=== PATIENT | female | born 1970 | race Caucasian/White ===

== ENCOUNTER 2018-10-23 11:10 | Emergency (ER) | payer MEDICARE, OTHER ==
[~2018-10-23] VITALS: Ht 172.7 cm; Wt 117.0 kg
[2018-10-23] MEDS ORDERED: BLOO1EAC87 MC (11:22)
[2018-10-23] MEDS ORDERED: BLOO-367 MC (11:22)
[2018-10-23] MEDS ORDERED: CEPH-507 PO (11:22)
--- OUTSIDE RECORDS SUMMARY | 2018-10-23 11:22 | XMS REPORT ---
Author Karson Randall [facility] eClinicalWorks Address Unknown Phone Unavailable Care Team Providers Care Cloud Architect Name Role Phone Karson Samuels CP Unavailable Allergies No Known Allergies Problems Problem Type Condition ICD-9 Code Onset Dates Condition Status Problem Diabetes mellitus without mention of complication, type II or unspecified type, not stated as uncontrolled 250.00 Active Medications Medication Code System Code Instructions Start Date End Date Status Dosage Omeprazole [facility] [id number] 40 Orally Once a day 1 capsule Results No Known Results Summary Purpose eClinicalWorks Submission
--- OUTSIDE RECORDS SUMMARY | 2018-10-23 11:22 | XMS REPORT ---
Author Robina Oliveira [facility] eClinicalWorks Address Unknown Phone Unavailable Care Team Providers Care Retail Business Manager Name Role Phone Robina Fernandez CP Unavailable Allergies, Adverse Reactions, Alerts Substance Reaction Event Type N.K.D.A. 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 Active Assessment Hypertension 401.9 Active Problem Hypertension 401.9 Active Problem Hyperlipidemia 272.4 Active Problem Anxiety 300.00 Active Problem Diabetes mellitus without mention of complication, type II or unspecified type, not stated as uncontrolled 250.00 Active Assessment Diabetes mellitus without mention of complication, type II or unspecified type, not stated as uncontrolled 250.00 Active Problem 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 Active Problem GERD (gastroesophageal reflux disease) 530.81 Active Medications Medication Code System Code Instructions Start Date End Date Status Dosage Simvastatin [facility] [address]-98 20 MG Orally Once a day 1 tablet in the evening Clonazepam [facility] [address]-04 0.5 MG Orally Twice a day Nov 30, 2014 1 tablet Metformin HCl [facility] [address]-76 1000 MG Orally Twice a day Nov 21, 2014 1 tablet with meals Citalopram Hydrobromide [facility] [address]-40 20 MG Orally Once a day Nov 30, 2014 1 tablet Lisinopril [facility] [address]-62 10 MG Orally Once a day May 31, 2013 1 tablet BD Insulin Syringe [facility] 8290-649236 U-100 1 ML sq bid Nov 21, 2014 as directed NovoLog Flexpen [facility] [address]-42 100 UNIT/ML Subcutaneous before meals 5u and increase by 2u per wk Acyclovir [facility] [address]-56 400mg Orally Twice a day 1 tablet Cephalexin [facility] [address]-24 500 MG Orally Four times a day 1 tablet NovoLog Mix 70/30 [facility] [address]-96 (70-30) 100 UNIT/ML Subcutaneous bid Nov 21, 2014 90u in am and 45u in pm Omeprazole [facility] 68791393388 40MG Orally Once a day 1 capsule Procedures Procedure Coding System Code Date Office Visit Est Pt Level 4 CPT-4 93959 Nov 30, 2014 Vital Signs Date/Time: Nov 30, 2014 Blood Pressure Systolic 148 mm Hg Cardiac Monitoring Heart Rate 114 /min Temperature 98.7 F BMI 32.38 Index Weight 213 lbs Height 68 in Blood Pressure Diastolic 94 mm Hg Respiratory Rate 16 /min Results No Known Results Summary Purpose eClinicalWorks Submission
--- OUTSIDE RECORDS SUMMARY | 2018-10-23 11:22 | XMS REPORT ---
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
--- OUTSIDE RECORDS SUMMARY | 2018-10-23 11:22 | XMS REPORT ---
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
--- OUTSIDE RECORDS SUMMARY | 2018-10-23 11:22 | XMS REPORT ---
Author Robina Oliveira [facility] eClinicalWorks Address Unknown Phone Unavailable Care Team Providers Care Associate Oracle Retail Name Role Phone Robina Fernandez CP Unavailable Allergies, Adverse Reactions, Alerts Substance Reaction Event Type N.K.D.A. 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 8290-785890 U-100 1 ML sq bid Nov 21, 2014 as directed Metformin HCl [facility] [address]-14 1000 MG Orally Twice a day Nov 21, 2014 1 tablet with meals Metformin HCl [facility] [address]-46 500 MG Orally Twice a day 1 tablet with meals Omeprazole [facility] 35001822361 40MG Orally Once a day 1 capsule Lisinopril [facility] [address]-18 5 MG Orally Once a day May 31, 2013 1 tablet NovoLog Mix 70/[address] [facility] [address]-76 (70-30) 100 UNIT/ML Subcutaneous bid Nov 21, 2014 90u in am and 45u in pm Simvastatin [facility] [address]-71 20 MG Orally Once a day 1 tablet in the evening Acyclovir [facility] [address]-10 400mg Orally Twice a day 1 tablet Procedures Procedure Coding System Code Date Office Visit Est Pt Level 4 CPT-4 25285 Nov 21, 2014 LIPID PANEL CPT-4 96200 Nov 21, 2014 Vital Signs Date/Time: Nov 21, 2014 Blood Pressure Systolic 114 mm Hg Cardiac Monitoring Heart Rate 90 /min Temperature 98.5 F BMI 32.54 Index Weight 214 lbs Height 68 in Blood Pressure Diastolic 80 mm Hg Respiratory Rate 16 /min Results No Known Results Summary Purpose eClinicalWorks Submission
--- OUTSIDE RECORDS SUMMARY | 2018-10-23 11:22 | XMS REPORT ---
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
--- OUTSIDE RECORDS SUMMARY | 2018-10-23 11:22 | XMS REPORT ---
Author Robina Oliveira [facility] eClinicalWorks Address Unknown Phone Unavailable Care Team Providers Care Paper Baler Name Role Phone Robina Fernandez CP Unavailable [...]
--- OUTSIDE RECORDS SUMMARY | 2018-10-23 11:22 | XMS REPORT ---
Author Karson Randall [facility] eClinicalWorks Address Unknown Phone Unavailable Care Team Providers Care Bar Hostess Name Role Phone Karson Samuels CP Unavailable Allergies No Known Allergies Problems Problem Type Condition ICD-9 Code Onset Dates Condition Status Problem Diabetes mellitus without mention of complication, type II or unspecified type, not stated as uncontrolled 250.00 Active Medications No Known Medications Results No Known Results Summary Purpose eClinicalWorks Submission
--- OUTSIDE RECORDS SUMMARY | 2018-10-23 11:22 | XMS REPORT ---
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
--- OUTSIDE RECORDS SUMMARY | 2018-10-23 11:22 | XMS REPORT ---
Author Karson Randall [facility] eClinicalWorks Address Unknown Phone Unavailable Care Team Providers Care Glove Presser Name Role Phone Karson Samuels CP Unavailable Allergies, Adverse Reactions, Alerts Substance Reaction Event Type N.K.D.A. Info Not Available Non Drug Allergy Problems Problem Type Condition ICD-9 Code Onset Dates Condition Status Assessment Diabetes mellitus without mention of complication, type II or unspecified type, not stated as uncontrolled 250.00 Active Assessment Major Depressive Disorder, Recurrent, Severe Without Psychotic Features 296.33 Active Problem Diabetes mellitus without mention of complication, type II or unspecified type, not stated as uncontrolled 250.00 Active Assessment Hyperlipidemia 272.4 Active Assessment UTI 599.0 Active Medications Medication Code System Code Instructions Start Date End Date Status Dosage Aspirin [facility] [address]-64 81mg 1T Cipro [facility] [address]-10 500 MG Orally Twice a day September 12, 2014 1 tablet Levemir [facility] [address]-61 100 UNIT/ML Subcutaneous at bedtime September 12, 2014 60 units Insulin Syringe-Needle U-100 [facility] 0 28G X 1/2" 1 ML subq 5 times a day September 12, 2014 as directed Simvastatin [facility] [address]-44 20 MG Orally Once a day 1 tablet in the evening Lisinopril [facility] [address]-83 5 MG Orally Once a day May 31, 2013 1 tablet Omeprazole [facility] 62050931505 40 Orally Once a day 1 capsule Acyclovir [facility] [address]-27 400mg Orally Twice a day 1 tablet Levemir Flexpen [facility] 43704878412 100 Subcutaneous Daily inject 60 units sub-q every night at bedtime NovoLog [facility] [address]-96 100 UNIT/ML Subcutaneous Three times daily September 12, 2014 !5 units as directed Wellbutrin XL [facility] 43573306063 300 MG Orally Once a day 1 tablet in the morning NovoLog Flexpen [facility] 89968612877 100 Subcutaneous Three times a day units sub-q three times daily with meals Procedures Procedure Coding System Code Date URINALYSIS, AUTO, W/O SCOPE CPT-4 57639 September 12, 2014 Office Visit, Est Pt., Level 3 CPT-4 98719 September 12, 2014 URINE TEST CPT-4 47876 September 12, 2014 Vital Signs Date/Time: September 12, 2014 Blood Pressure Systolic 122 mm Hg Cardiac Monitoring Heart Rate 91 /min Temperature 98.9 F BMI 33.14 Index Weight 218 lbs Height 68 in Blood Pressure Diastolic 80 mm Hg Respiratory Rate 16 /min Results Name Result Date Reference Range Unit Abnormality Flag TEST - IH Summary Purpose eClinicalWorks Submission
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
--- OUTSIDE RECORDS SUMMARY | 2018-10-23 11:22 | XMS REPORT ---
Author Karson Randall [facility] eClinicalWorks Address Unknown Phone Unavailable Care Team Providers Care Commercial Drafter Name Role Phone Karson Samuels CP Unavailable Allergies, Adverse Reactions, Alerts Substance Reaction Event Type N.K.D.A. Info Not Available Non Drug Allergy Problems Problem Type Condition ICD-9 Code Onset Dates Condition Status Assessment Diarrhea 787.91 Active Assessment Abdominal pain, unspecified site 789.00 Active Problem Diabetes mellitus without mention of complication, type II or unspecified type, not stated as uncontrolled 250.00 Active Medications Medication Code System Code Instructions Start Date End Date Status Dosage Accu-Chek Liseth SmartView [facility] [address]-19 test cutaneus three times a day May 31, 2013 as directed NovoLog Flexpen [facility] [address]-25 5u around meals not defined Aspirin [facility] [address]-15 81mg 1T Bactrim DS [facility] [address]-33 800-160 MG Orally Twice a day August 07, 2013 1 tablet Omeprazole [facility] [address]-83 40 MG Orally Once a day May 31, 2013 1 capsule Promethazine HCl [facility] [address]-98 25 MG Orally Three times a day August 07, 2013 1 tablet Simvastatin [facility] [address]-58 20 MG Orally Once a day August 01, 2013 1 tablet in the evening Flagyl [facility] [address]-20 500 MG Orally Two times a day August 07, 2013 1 tablet Carafate [facility] [address]-24 1 GM Orally Twice a day August 14, 2013 1 tablet on an empty stomach Levemir Flexpen [facility] [address]-48 100 UNIT/ML Subcutaneous once a day at betime 46 units Acyclovir [facility] [address]-26 400mg Twice a day 1T Lisinopril [facility] [address]-96 5 MG Orally Once a day May 31, 2013 1 tablet Procedures Procedure Coding System Code Date URINALYSIS, AUTO, W/O SCOPE CPT-4 25079 August 14, 2013 Office Visit Est Pt Level 4 CPT-4 76104 August 14, 2013 GLUCOSE BLOOD TEST CPT-4 54213 August 14, 2013 Vital Signs Date/Time: August 14, 2013 Blood Pressure Systolic 126 mm Hg Cardiac Monitoring Heart Rate 84 /min Temperature 98.0 F BMI 35.12 Index Weight 231 lbs Height 68 in Blood Pressure Diastolic 80 mm Hg Respiratory Rate 14 /min Results No Known Results Summary Purpose eClinicalWorks Submission
--- OUTSIDE RECORDS SUMMARY | 2018-10-23 11:22 | XMS REPORT ---
Author Robina Oliveira [facility] eClinicalWorks Address Unknown Phone Unavailable Care Team Providers Care Butadiene Converter Helper Name Role Phone Robina Fernandez CP Unavailable [...] Start Date End Date Status Dosage Omeprazole [facility] 32542604696 40MG Orally Once a day 1 capsule Results No Known Results Summary Purpose eClinicalWorks Submission
--- NOTE | 2018-10-23 11:23 | ED Lower Extremity ---
General Stated Complaint: WOUND ON TOE Source: patient Exam Limitations: no limitations History of Present Illness Date Seen by Provider: Oct 23, 2018 Time Seen by Provider: 11:22 Initial Comments To ER with reports of foul-smelling urine. She also has a wound to the medial aspect of the tip of the left great toe. She just noticed it today, not sure how she got it, she is a diabetic. She's been taking her insulin as directed but she does not have a glucometer. [facility] She arrives by EMS for this reason. Onset: just prior to arrival Severity: moderate Pain/Injury Location: right 1st toe Method of Injury: fell Modifying Factors: Worse With Movement Allergies and Home Medications Allergies Coded Allergies: No Known Drug Allergies (Unverified , 10/23/18) Home Medications Cephalexin 500 Mg Capsule, 500 MG PO TID Prescribed by: EPIFANIO SEQUEIRA on 10/23/18 1122 Patient Home Medication List Home Medication List Reviewed: Yes Review of Systems Constitutional: see HPI EENTM: see HPI Respiratory: no symptoms reported Cardiovascular: no symptoms reported Genitourinary: no symptoms reported Musculoskeletal: see HPI Skin: no symptoms reported Psychiatric/Neurological: No Symptoms Reported Physical Exam Vital Signs Vital Signs - First Documented 10/23/18 11:18 Temp 98.5 Pulse 103 Resp 18 B/P (MAP) 163/86 (111) Pulse Ox 98 O2 Delivery Room Air Capillary Refill : Height, Weight, BMI Height: '" Weight: lbs. oz. kg; BMI Method: General Appearance: WD/WN, no apparent distress HEENT: PERRL/EOMI, normal ENT inspection Neck: non-tender, full range of motion Cardiovascular: tachycardia Respiratory: no respiratory distress, no accessory muscle use Hips: bilateral hip non-tender, bilateral hip normal inspection, bilateral hip normal range of motion Legs: bilateral leg non-tender, bilateral leg normal inspection, bilateral leg normal range of motion Knees: bilateral knee non-tender, bilateral knee normal inspection, bilateral knee normal range of motion Ankles: bilateral ankle non-tender, bilateral ankle normal inspection, bilateral ankle normal range of motion Feet: right foot other (to the medial aspect of the distal right foot, there is a 0.5 cm incision down to the subcutaneous tissue. This is not actively bleeding, there is no active infection or drainage. There is no surrounding erythema.) Neurologic/Psychiatric: alert, normal mood/affect Skin: normal color, warm/dry Progress/Results/Core Measures Results/Orders Lab Results Laboratory Tests Test 10/23/18 11:21 Range/Units Urine Color YELLOW Urine Clarity VERY CLOUDY H Urine pH 5 5-9 Urine Specific Cassandra 1.025 H 1.016-1.022 Urine Protein 4+ NEGATIVE Urine Glucose (UA) NEGATIVE NEGATIVE Urine Ketones 1+ H NEGATIVE Urine Nitrite POSITIVE H NEGATIVE Urine Bilirubin 1+ H NEGATIVE Urine Urobilinogen 1 NORMAL MG/DL Urine Leukocyte Esterase 2+ H NEGATIVE Urine RBC (Auto) 2+ H NEGATIVE Urine RBC 2-5 H /HPF Urine WBC 25-50 H /HPF Urine Squamous Epithelial Cells 5-10 /HPF Urine Crystals NONE /LPF Urine Bacteria LARGE H /HPF Urine Casts NONE /LPF Urine Mucus NEGATIVE /LPF Urine Culture Indicated YES Urine Test NEGATIVE NEGATIVE My Orders Orders - EPIFANIO SEQUEIRA APRN Ua Culture If Indicated (10/23/18 11:16) Hcg,Qualitative Urine (10/23/18 11:26) Urine Culture (10/23/18 11:21) Cefdinir Capsule (Omnicef Capsule) (10/23/18 11:45) Vital Signs/I&O 10/23/18 11:18 Temp 98.5 Pulse 103 Resp 18 B/P (MAP) 163/86 (111) Pulse Ox 98 O2 Delivery Room Air Departure Impression Primary Impression: Fissure in skin of foot Disposition: 01 HOME, SELF-CARE Condition: Stable Departure-Patient Inst. Decision time for Depature: 11:24 Referrals: NO,LOCAL PHYSICIAN (PCP/Family) Primary Care Physician Patient Instructions: Urinary Tract Infection, Adult (DC), Wound Care Add. Discharge Instructions: 1. Keep this covered with some antibiotic ointment which will also help to soften the skin in that area. Antibiotics as directed Scripts Lancets (Blood Lancets) 1 Each Each EACH for Hyperglycemia, #120 Prov: EPIFANIO SEQUEIRA APRN 10/23/18 Blood Glucose Strips-[employer] ([employer] Blood Glucose System) 1 Each Kit EACH Q6H for Hyperglycemia, #1 Prov: EPIFANIO SEQUEIRA APRN 10/23/18 Blood-Glucose Meter (Blood Glucose Meter) 1 Each Each EACH PRN PRN for HYPERGLYCEMIA, #1 1 Refill check sugar 4 times daily Prov: EPIFANIO SEQUEIRA APRN 10/23/18 Cephalexin (Keflex) 500 Mg Capsule 500 MG PO TID, #21 CAP Prov: EPIFANIO SEQUEIRA APRN 10/23/18 EPIFANIO SEQUEIRA APRN Oct 23, 2018 11:23
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
--- OUTSIDE RECORDS SUMMARY | 2018-10-23 11:24 | XMS REPORT ---
Author Karson Randall [facility] eClinical[employer] Address Unknown Phone Unavailable Care Team Providers Care Market Garden Worker Name Role Phone Karson Samuels CP Unavailable Allergies No Known Allergies Problems Problem Type Condition ICD-9 Code Onset Dates Condition Status Problem Diabetes mellitus without mention of complication, type II or unspecified type, not stated as uncontrolled 250.00 Active Medications Medication Code System Code Instructions Start Date End Date Status Dosage Wellbutrin SR [facility] [address]-25 150 MG Orally Twice a day October 18, 2013 Active 1 tablet Results No Known Results Summary Purpose eClinicalWorks Submission
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
--- OUTSIDE RECORDS SUMMARY | 2018-10-23 11:24 | XMS REPORT ---
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
[2018-10-23] MEDS ORDERED: LANC-954 MC (11:26)
--- OUTSIDE RECORDS SUMMARY | 2018-10-23 11:26 | XMS REPORT ---
Author Robina Oliveira [facility] [place] e[employer] Address Unknown Phone Unavailable Care Team Providers Care Psychiatric Nurse Practitioner Name Role Phone Robina Fernandez CP Unavailable [...]
--- OUTSIDE RECORDS SUMMARY | 2018-10-23 11:26 | XMS REPORT ---
Author Robina Oliveira [facility] e[employer] Address Unknown Phone Unavailable Care Team Providers Care Radio Talk Show Host Name Role Phone Robina Fernandez CP Unavailable [...] GERD (gastroesophageal reflux disease) K21.9 Active Medications Medication Code System Code Instructions Start Date End Date Status Dosage Acyclovir [facility] [id number] 400MG Orally Twice a day 1 tablet Results No Known Results Summary Purpose eClinicalWorks Submission
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
--- OUTSIDE RECORDS SUMMARY | 2018-10-23 11:26 | XMS REPORT ---
Author Robina Oliveira [facility] [employer] Address Unknown Phone Unavailable Care Team Providers Care Airborne Operations Superintendent Name Role Phone Robina Fernandez CP Unavailable [...]
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
[2018-10-23 11:27] LABS: CLARITY,URINE VERY CLOUDY; COLOR,URINE YELLOW; GLUCOSE, URINE (UA) NEGATIVE (NEGATIVE); KETONES,URINE 1+ (NEGATIVE); LEUKOCYTE ESTERASE ,URINE 2+ (NEGATIVE); NITRITE,URINE POSITIVE (NEGATIVE); PH,URINE 5 (5-9); PROTEIN,URINE 4+ (NEGATIVE); UROBILINOGEN,URINE 1 MG/DL (NORMAL)
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
--- OUTSIDE RECORDS SUMMARY | 2018-10-23 11:27 | XMS REPORT ---
Author Author Karson Samuels [facility] eClinicalWorks Address Unknown Phone Unavailable Care Team Providers Care Powerhouse Engineer Name Role Phone Karson Samuels CP Unavailable Allergies No Known Allergies Problems Problem Type Condition ICD-9 Code Onset Dates Condition Status Assessment Major Depressive Disorder, Recurrent, Severe Without Psychotic Features 296.33 Active Assessment Contact with or exposure to venereal diseases V01.6 Active Problem Diabetes mellitus without mention of complication, type II or unspecified type, not stated as uncontrolled 250.00 Active Medications Medication Code System Code Instructions Start Date End Date Status Dosage Abilify [facility] [address]-82 10 MG Orally Once a day Feb 22, 2014 Active 1 tablet Wellbutrin SR [facility] [address]-80 150 MG Orally Twice a day October 18, 2013 Active 1 tablet Zithromax [facility] [address]-19 1 GM Orally Once a day Feb 22, 2014 Active as directed Results No Known Results Summary Purpose eClinicalWorks Submission
--- OUTSIDE RECORDS SUMMARY | 2018-10-23 11:27 | XMS REPORT ---
Author Robina Oliveira [facility] eClinicalWorks Address Unknown Phone Unavailable Care Team Providers Care Body Fitter Name Role Phone Robina Fernandez CP Unavailable [...] mellitus E13.319 Active Medications No Known Medications Results No Known Results Summary Purpose eClinicalWorks Submission
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
--- OUTSIDE RECORDS SUMMARY | 2018-10-23 11:27 | XMS REPORT ---
Author Robina Oliveira [facility] eClinicalWorks Address Unknown Phone Unavailable Care Team Providers Care Environmental Marketer Name Role Phone Robina Fernandez CP Unavailable [...]
--- OUTSIDE RECORDS SUMMARY | 2018-10-23 11:27 | XMS REPORT ---
Author Robina Oliveira [facility] eClinicalWorks Address Unknown Phone Unavailable Care Team Providers Care Respiratory Care Assistant Name Role Phone Robina Fernandez CP Unavailable [...]
--- OUTSIDE RECORDS SUMMARY | 2018-10-23 11:27 | XMS REPORT ---
Author Robina Oliveira [facility] eClinicalWorks Address Unknown Phone Unavailable Care Team Providers Care Refractory Specialist Name Role Phone Robina Fenrandez CP Unavailable Allergies No Known Allergies Problems [...]
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
--- OUTSIDE RECORDS SUMMARY | 2018-10-23 11:28 | XMS REPORT ---
Author Karson Randall [facility] eClinicalWorks Address Unknown Phone Unavailable Care Team Providers Care Nitroglycerin Separator Operator Name Role Phone Karson Samuels CP Unavailable Allergies No Known Allergies Problems Problem Type Condition ICD-9 Code Onset Dates Condition Status Problem Diabetes mellitus without mention of complication, type II or unspecified type, not stated as uncontrolled 250.00 Active Medications No Known Medications Results No Known Results Summary Purpose eClinicalWorks Submission
--- OUTSIDE RECORDS SUMMARY | 2018-10-23 11:28 | XMS REPORT ---
Author Karson Randall [facility] eClinicalWorks Address Unknown Phone Unavailable Care Team Providers Care Windows Vmware Administrator Name Role Phone Karson Samuels CP Unavailable Allergies No Known Allergies Problems Problem Type Condition ICD-9 Code Onset Dates Condition Status Problem Diabetes mellitus without mention of complication, type II or unspecified type, not stated as uncontrolled 250.00 Active Medications No Known Medications Results No Known Results Summary Purpose eClinicalWorks Submission
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
--- OUTSIDE RECORDS SUMMARY | 2018-10-23 11:28 | XMS REPORT ---
Author Robina Oliveira [facility] eClinicalWorks Address Unknown Phone Unavailable Care Team Providers Care Barrel Maker Name Role Phone Robina Fernandez CP Unavailable [...] Start Date End Date Status Dosage Omeprazole [facility] [id number] 40MG Orally Once a day 1 capsule Citalopram Hydrobromide [facility] [address]-79 20 MG Orally Once a day Nov 30, 2014 1 tablet Results No Known Results Summary Purpose eClinicalWorks Submission
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
--- OUTSIDE RECORDS SUMMARY | 2018-10-23 11:28 | XMS REPORT ---
Author Robina Oliveira [facility] eClinicalWorks Address Unknown Phone Unavailable Care Team Providers Care Grounds Maintenance Worker Name Role Phone Robina Fernandez CP Unavailable [...] Start Date End Date Status Dosage Simvastatin [facility] [address]-00 20 MG Orally Once a day 1 tablet in the evening Lisinopril [facility] [address]-91 10 mg Orally Once a day May 31, 2013 1 tablet Results No Known Results Summary Purpose eClinicalWorks Submission
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
--- OUTSIDE RECORDS SUMMARY | 2018-10-23 11:29 | XMS REPORT ---
Author Karson Randall [facility] eClinicalWorks Address Unknown Phone Unavailable Care Team Providers Care Shotgun Shell Reprinting Unit Operator Name Role Phone Karson Samuels CP Unavailable Allergies No Known Allergies Problems Problem Type Condition ICD-9 Code Onset Dates Condition Status Problem Diabetes mellitus without mention of complication, type II or unspecified type, not stated as uncontrolled 250.00 Active Medications No Known Medications Results No Known Results Summary Purpose eClinicalWorks Submission
--- OUTSIDE RECORDS SUMMARY | 2018-10-23 11:29 | XMS REPORT ---
Author Karson Randall [facility] eClinicalWorks Address Unknown Phone Unavailable Care Team Providers Care Ceramic Design Engineer Name Role Phone Karson Samuels CP Unavailable Allergies No Known Allergies Problems Problem Type Condition ICD-9 Code Onset Dates Condition Status Problem Diabetes mellitus without mention of complication, type II or unspecified type, not stated as uncontrolled 250.00 Active Medications No Known Medications Results No Known Results Summary Purpose eClinicalWorks Submission
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
--- OUTSIDE RECORDS SUMMARY | 2018-10-23 11:29 | XMS REPORT ---
Author Robina Oliveira [facility] eClinicalWorks Address Unknown Phone Unavailable Care Team Providers Care Personnel Worker Name Role Phone Robina Fernandez CP [...]
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
--- OUTSIDE RECORDS SUMMARY | 2018-10-23 11:29 | XMS REPORT ---
Author Author Robina Fernandez [facility] Address [address], [address] [place] [address] Care Team Providers Care Service Center Representative Name Role Phone Robina Fernandez Unavailable PROBLEMS ALLERGIES No Information SOCIAL HISTORY No smoking Hx information available PLAN OF CARE VITAL SIGNS MEDICATIONS RESULTS No Results PROCEDURES No Known procedures IMMUNIZATIONS No Known Immunizations MEDICAL (GENERAL) HISTORY
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
--- OUTSIDE RECORDS SUMMARY | 2018-10-23 11:29 | XMS REPORT ---
Author Robina Oliveira [facility] eClinicalWorks Address Unknown Phone Unavailable Care Team Providers Care Nutrition Associate Name Role Phone Robina Fernandez CP Unavailable [...]
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
--- OUTSIDE RECORDS SUMMARY | 2018-10-23 11:30 | XMS REPORT ---
Author Karson Randall [facility] eClinicalWorks Address Unknown Phone Unavailable Care Team Providers Care Seafood And Service Meat Manager Name Role Phone Karson Samuels CP Unavailable Allergies, Adverse Reactions, Alerts Substance Reaction Event Type N.K.D.A. Info Not Available Non Drug Allergy Problems Problem Type Condition ICD-9 Code Onset Dates Condition Status Assessment Major Depressive Disorder, Recurrent, Severe Without Psychotic Features 296.33 Active Assessment UTI (lower urinary tract infection) 599.0 Active Problem Diabetes mellitus without mention of complication, type II or unspecified type, not stated as uncontrolled 250.00 Active Medications Medication Code System Code Instructions Start Date End Date Status Dosage Aspirin [facility] [address]-30 81mg Active 1T Lisinopril [facility] [address]-32 5 MG Orally Once a day May 31, 2013 Active 1 tablet Abilify [facility] [address]-72 10 mg Orally Once a day Feb 22, 2014 Active 1 tablet Bactrim DS [facility] [address]-23 800-160 MG Orally Twice a day October 18, 2013 Active 1 tablet Simvastatin [facility] [address]-41 20 MG Orally Once a day Active 1 tablet in the evening Bactrim DS [facility] [address]-77 800-160 MG Orally twice a day Apr 03, 2014 Active 1 tablet Zithromax [facility] [address]-79 1 GM Orally Once a day Feb 22, 2014 Active as directed Ambien [facility] [address]-65 5 MG Orally Once a day Apr 03, 2014 Active 1 tablet at bedtime Wellbutrin SR [facility] [address]-82 150 MG Orally Twice a day October 18, 2013 Inactive 1 tablet Promethazine-Codeine [facility] [address]-89 6.25-10 MG/5ML Orally every 6 hrs October 30, 2013 Active 10 ml as needed Levaquin [facility] [address]-23 500 MG Orally Once a day October 30, 2013 Active as directed Levemir Flexpen [facility] 04145254957 100 Subcutaneous Daily Active inject 60 units sub-q every night at bedtime NovoLog Flexpen [facility] 84654607324 100 Subcutaneous Three times a day Active emlrfe31 units sub-q three times daily with meals Accu-Chek Liseth SmartView [facility] [address]-19 test cutaneus three times a day May 31, 2013 Active as directed Wellbutrin XL [facility] [address]-73 300 MG Orally Once a day Apr 03, 2014 Active 1 tablet in the morning Omeprazole [facility] 74500571469 40 Orally Once a day Active 1 capsule Acyclovir [facility] [address]-02 400mg Orally Twice a day Active 1 tablet Prazosin HCl [facility] [address]-96 1 MG Orally Twice a day Nov 08, 2013 Active 1 capsule Procedures Procedure Coding System Code Date Office Visit Est Pt Level 4 CPT-4 64138 Apr 03, 2014 URINALYSIS, AUTO, W/O SCOPE CPT-4 12998 Apr 03, 2014 Vital Signs Date/Time: Apr 03, 2014 Blood Pressure Systolic 124 mm Hg Cardiac Monitoring Heart Rate 88 /min Temperature 98.6 F BMI 34.97 Index Weight 230 lbs Height 68 in Blood Pressure Diastolic 88 mm Hg Respiratory Rate 14 /min Results Name Result Date Reference Range Unit URINALYSIS, DIPSTICK - ----PH, UA 5.5 20140403 - ----NITRITES, UA positive [id number] - ----LEUKOCYTE ESTERASE, UA neg 20140403 - ----KETONES, UA 3+ 20140403 - ----GLUCOSE, UA 2+ 20140403 - ----SPECIFIC GRAVITY, UA 1.025 20140403 - ----BILIRUBIN, UA neg 20140403 - ----PROTEIN, UA 3+ 20140403 - ----BLOOD, UA 1+ 20140403 - ----CLARITY, UA cloudy 20140403 - ----UROBILINOGEN, UA 0.2 20140403 - ----COLOR, UA tia 20140403 - URINE CULTURE ----Info Not Available ESCCOL 20140403 - ----CULTURE ESCHERICHIA COLI 20140403 - ----REPORT STATUS FINAL 04/05/201420140403 - ----SPECIAL REQUESTS NONE 20140403 - ----COLONY COUNT >100,000 CFU/ML 20140403 - ----SPECIMEN DESCRIPTION URINE 20140403 - Summary Purpose eClinicalWorks Submission
--- OUTSIDE RECORDS SUMMARY | 2018-10-23 11:30 | XMS REPORT ---
Author Author Libia Acosta Organization eClinicalWorks Address Unknown Phone Unavailable Care Team Providers Care Care Specialist Name Role Phone Libia Acosta CP Unavailable Allergies No Known Allergies Problems [...] Instructions Start Date End Date Status Dosage Lantus [facility] [address]-81 100 UNIT/ML Subcutaneous DX E11.9 QHS November 01, 2015 20 units Results No Known Results Summary Purpose eClinicalWorks Submission
--- OUTSIDE RECORDS SUMMARY | 2018-10-23 11:30 | XMS REPORT ---
Author Robina Oliveira [facility] eClinicalWorks Address Unknown Phone Unavailable Care Team Providers Care Agriculturist Name Role Phone Robina Fernandez CP Unavailable [...]
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
--- OUTSIDE RECORDS SUMMARY | 2018-10-23 11:30 | XMS REPORT ---
Author Author Robina Fernandez [facility] Address [address], [address] [place] [address] Care Team Providers Care Counter Roller Name Role Phone Robina Fernandez Unavailable PROBLEMS ALLERGIES No Information SOCIAL HISTORY No smoking Hx information available PLAN OF CARE VITAL SIGNS MEDICATIONS Unknown Medications RESULTS No Results PROCEDURES No Known procedures IMMUNIZATIONS No Known Immunizations MEDICAL (GENERAL) HISTORY
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
[2018-10-23 11:42] LABS: BACTERIA,URINE LARGE /HPF; BILIRUBIN,URINE 1+ (NEGATIVE); WBC,URINE 25-50 /HPF
[2018-10-23] MEDS ORDERED: CEFDINIR 300 MG (OMNICEF) CAP PO ONE (11:45)
[2018-10-23] MEDS ORDERED: FLUC150T PO (11:50)
[2018-10-23 12:01] VITALS: BP 142/78
== END 2018-10-23 12:01 | disposition home or self-care (01) ==
LOC: EDUNIT# 11:10 → ER 11:17
DX: R23.4 Changes in skin texture (principal); S91.102A Unspecified open wound of left great toe without damage to nail, initial encounter; E11.9 Type 2 diabetes mellitus without complications; Z79.4 Long term (current) use of insulin; W19.XXXA Unspecified fall, initial encounter
CPT/HCPCS: 81000; 84703; 87077; 87088; 87186; 99283